=== PATIENT | female | born 1990 | race Caucasian/White ===

== ENCOUNTER 2021-07-13 05:32 | Outpatient (CLI) | payer SELFPAY ==
[~2021-07-13] VITALS: Ht 167.7 cm; Wt 102.3 kg
[2021-07-13] MEDS ORDERED: PNV1TABL9 PO (12:58)
[2021-07-13] MEDS ORDERED: ASCO500C17 PO (12:58)
[2021-07-13] MEDS ORDERED: METO-351 PO (12:58)
[2021-07-13] MEDS ORDERED: MV-M1TAB20 PO (12:58)
[2021-07-13] MEDS ORDERED: LORA10TA76 PO (12:58)
[2021-07-13] MEDS ORDERED: LEVO25TA5 PO (12:58)
== END 2021-07-13 14:25 | disposition home or self-care (01) ==
LOC: PREOP 05:32
PROVIDERS: ATTEND Surgery
DX: Z01.818 Encounter for other preprocedural examination (principal)

== ENCOUNTER 2021-07-20 08:28 | Day surgery (SDC) | payer OTHER ==
[~2021-07-20] VITALS: Ht 167.7 cm; Wt 102.3 kg
[2021-07-20] VITALS (10 sets, daily range): BP systolic 95–119; BP diastolic 60–85
[~2021-07-20 08:28] MED LIST: ASCO500C17 PO; LEVO25TA5 PO; LORA10TA76 PO; METO-351 PO; MV-M1TAB20 PO; PNV1TABL9 PO
--- NOTE | 2021-07-20 08:46 | Progress Note-Pre Operative ---
Pre-Operative Progress Note H&P Reviewed The H&P was reviewed, patient examined and no changes noted. Date Seen by Provider: Jul 20, 2021 Time Seen by Provider: 08:45 Date H&P Reviewed: Jul 20, 2021 Time H&P Reviewed: 08:40 Pre-Operative Diagnosis: Anal Fistula KELLEN NOVAK APRN Jul 20, 2021 08:46
--- OUTSIDE RECORDS SUMMARY | 2021-07-20 08:47 | XMS REPORT | CCD ---
Author Candice Rodríguez Organization Ivelisse Up MD, [facility] Address [facility] [place] [address] Phone Care Team Providers Care Laydown Machine Operator Name Role Phone PP Unavailable CCM Unavailable Summary Purpose Interface Exchange Insurance Providers Payer name Policy type / Coverage type Covered constitution party ID Effective Begin Date Effective End Date ABS [employer] Commercial Insurance [id number] Unknown Unkn own Family history Runs in the family Diagnosis Age At Onset Arthritis Unknown kidney disease Unknown Hypertension Unknown Myocardial infarction Unknown Diabetes mellitus Type 2 Unknown Father Diagnosis Age At Onset Diabetes mellitus Type 2 Unknown Hypertension Unknown Mother Diagnosis Age At Onset Depression Unknown Hypertension Unknown Social History Social History Element Codes Description Effective Dates Marital status Unknown Suresh 09/26/2020 Number of children Unknown 0 09/26/2020 Employment Unknown Currently employed RN at [employer] 09/26/[address]: 301367351 Never smoker 09/26/[address]: 665804478 Never drinks alcohol 2019 Allergies, Adverse Reactions, Alerts Substance Reaction Codes Entered Date Inactivated Date Status clindamycin HCl hives Unknown 09/26/2020 No Inactive Date Act satnam bactrim hives RxNorm: 159928 09/26/2020 No Inactive Date Acti ve Problems Condition Codes Effective Dates Condition Status Rectal cyst ICD-10: K62.89 ICD-9: 569.49 05/31/2021 Active Rectal discharge ICD-10: R19.8 ICD-9: 787.99 05/31/2021 Active Rectal abscess ICD-10: K61.1 ICD-9: 566 05/08/2021 Active COVID-19 ICD-10: U07.1 ICD-9: 079.89 10/28/2020 Active Hypothyroidism, unspecified ICD-10: E03.9 ICD-9: 244.9 09/26/2020 Active Hypothryroidism Unknown 09/26/2020 Active Encounter for general adult medical examination withou t abnormal findings ICD- 10: Z00.00 ICD-9: V70.0 09/26/2020 Active Medications Medication Codes Instructions Start Date Stop Date Status Fill Instructions levofloxacin 500 mg tablet RxNorm: 488511 1 Tablet(s) Oral every da y 05/12/2021 05/11/2021 Inactive levofloxacin 500 mg tablet RxNorm: 902890 1 Tablet(s) Oral every da y 05/12/2021 05/19/2021 Inactive take a probiotic BID x 7 day s Vitamin C 500 mg tablet RxNorm: 197919 1 Tablet(s) Oral every day 0 05/08/2021 No Stop Date Active Vitamin D3 125 mcg (5,000 unit) tablet RxNorm: 383183 1 Tablet(s) Oral every day 05/08/2021 No Stop Date Active doxycycline hyclate 100 mg capsule RxNorm: 3143298 1 Cap malia(s) Oral two times a day 05/05/2021 05/04/2021 Inactive doxycycline hyclate 100 mg capsule RxNorm: 1171102 1 Cap malia(s) Oral two times a day 05/05/2021 05/11/2021 Inactive levothyroxine 25 mcg tablet RxNorm: 775874 1 Tablet(s) Oral nikos ry day 01/09/2021 07/08/2021 Active metoprolol succinate ER 25 mg tablet,extended release 24 hr RxNorm: 786531 1 Tablet(s) Oral every day 01/09/2021 07/08/2021 Active Zofran 4 mg tablet RxNorm: 945037 1 Tablet(s) Oral thr ee times a day as needed nausea 10/31/2020 No Stop Date Active Zofran 4 mg tablet RxNorm: 203005 1 Tablet(s) Oral thr ee times a day as needed nausea 10/31/2020 10/30/2020 Inactive Ventolin HFA 90 mcg/actuation aerosol inhaler RxNorm: 316951 2 Puff(s) Inhalation four times a day as needed dyspnea 10/28/2020 No Stop Date Ac tive prednisone 10 mg tablet RxNorm: 784450 Tablet(s) Oral 6,5,4,3,2,1 1 12/28/2019 05/07/2021 Inactive Nexium 24HR 20 mg tablet,delayed release RxNorm: 7587715 1/2 Tablet(s) Oral every day as needed 09/26/2020 No Stop Date Active metoprolol succinate ER 25 mg tablet,extended release 24 hr RxNorm: 685050 1 Tablet(s) Oral every day 09/26/2020 01/08/2021 Inactive levothyroxine 25 mcg tablet RxNorm: 506835 1 Tablet(s) Oral nikos09/26/2020 01/08/2021 Inactive oral RxNorm: oral 09/26/2020 Active Medication Administered No Medication Administered data Immunizations Vaccine Codes Date Status Covid-19 CVX: 208 04/24/2021 Influenza CVX: 135 08/02/2020 Results Observation Observation Code Item Item Code Result Date S ervice Location Tsh Ord6 TSH (3rd IS) 2.92 uIU/mL 05/09/2021 Unkn own Free T4 [id number] FREE T4 0.85 ng/dL 05/09/2021 Unknown Free T4 [id number] FREE T4 0.86 ng/dL 10/13/2020 Unknown Tsh Ord6 TSH (3rd IS) 3.38 uIU/mL 10/13/2020 Unkn own Procedures No Procedures data Vital Signs Date Vital 05/31/2021 Blood Pressure 1: 116/74 Code: 8480-6 Heart Rate 1: 92 bpm Height: 5'6" Code: 8302-2 SpO2: 98% Temperature: 36.2 (C) / 97.2 (F) Weight: Code: 35888-5 05/08/2021 Blood Pressure 1: 110/80 Code: 8480-6 BMI: 37.4 Code: 59067-0 Heart Rate 1: 72 bpm Height: 5'6" Code: 8302-2 SpO2: 98% Temperature: 3 7.1 (C) / 98.7 (F) Weight: 232 lbs Code: 80816-8 10/28/2020 Height: Code: 8302-2 Weight: Code: 294 63-7 09/26/2020 Blood Pressure 1: 116/76 Code: 8480-6 BMI: 38.3 Code: 91788-1 Heart Rate 1: 70 bpm Height: 5'6" Code: 8302-2 SpO2: 98% Temperature: 3 7.0 (C) / 98.6 (F) Weight: 237 lbs Code: 69295-1 Functional Status No Functional Status data Reason For Visit Reason For Visit Effective Dates Notes skin lesion 05/31/2021 skin lesion 05/08/2021 sinus congestion 10/28/2020 hypothyroid 09/26/2020 Encounters Encounter Performer Location Codes Date () 12466 EST. PATIENT, LEVEL III Diagnosis: Rectal cyst[ICD10: K62.89] Diagnosis: Rectal discharge[ICD10: R19.8] Brittany Up MD, [facility] CPT-4: 49368 05/31/2021 33594 EST. PATIENT, LEVEL III Diagnosis: Rectal abscess[ICD10: K61.1] Brittany Up MD, [facility] CPT- 4: 56425 05/08/2021 32645 EST. PATIENT, LEVEL III Diagnosis: COVID-19[ICD10: U07.1] Brittany Up MD, [facility] CPT -4: 78606 10/28/2020 ([id number]) PREV VISIT NEW AGE 18-39 Diagnosis: Encounter for general adult medical examination without abnormal findings[ICD10: Z00.00] Mirlande Up MD, [facility] CPT-4: 19004 09/26/2020 Plan of Care Planned Activity Notes Codes Status Date Visit Plan: Rectal cyst and drainage - r ecurrent - will refer to colorectal specialist - pt is to notify clinic with any acute changes, questions, or concerns. 05/31/2021 Appointment: Brittany Rockwell WPtel: [address] [place], [place] [phone] (30 min) Complex 05/31/2021 Patient Education: Patient Medication Summary Completed 05/31/2021 Visit Plan: Rectal abscess - improved - pt is to finish abx as ordered - pt is to notify clinic if symptoms do not completely resolve, or with any acute changes, questions, or concerns. 05/08/2021 Appointment: Brittany Rockwell WPtel: [address] [place], [place] [phone] (15 min) Moderate 05/08/2021 Patient Education: Patient Medication Summary Completed 05/08/2021 Appointment: Mirlande Catherine WPtel: [address] [place], [place] [phone] [place] (15 min) Moderate 01/20/2021 Appointment: Mirlande Catherine WPtel: [phone] [phone] [place] (15 min) Moderate 01/16/2021 Visit Plan: COVID-19 - Pt advised to inc rease fluids, vitamin C. Discussed natural and expected course of this diagnosis and need to alert me if symptoms do not follow expected course, or if any worse. RX sent to patient's pharmacy. 10/28/2020 [phone] [facility] [facility] 10/28/2020 Patient Education: Patient Medication Summary Completed 10/28/2020 Patient Education: Patient Medication Summary Completed 10/12/2020 Patient Education: Patient Medication Summary Completed 09/26/2020 Instructions Comment . Rectal cyst and drainage - recurrent - will refer to colorectal specialist - pt is to notify clinic with any acute changes, questions, or concerns. Diabetes has been removed from your hist ory on your chart. Rectal abscess - improved - pt is to finish abx as ordered - pt is to notify clinic if symptoms do not completely resolve, or with any acute changes, questions, or concerns. . COVID-19 - Pt advised to increase flui ds, vitamin C. Discussed natural and expected course of this diagnosis and need to alert me if symptoms do not follow expected course, or if any worse. RX sent to patient's pharmacy. Medical Equipment No Medical Equipment data Health Concerns Section Health Concerns data not found Goals Section Goals data not found Interventions Section Interventions data not found Health Status Evaluations/Outcomes Section Health Status Evaluations/Outcomes data not found Advance Directives No Advance Directive data
--- OUTSIDE RECORDS SUMMARY | 2021-07-20 08:47 | XMS REPORT | CCD ---
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[employer] 09/26/[address]: 860714151 Never smoker 09/26/[address]: 497458929 Never drinks alcohol 2019 Allergies, Adverse Reactions, Alerts Substance Reaction Codes Entered Date Inactivated Date Status clindamycin HCl hives Unknown 09/26/2020 No Inactive Date Act satnam bactrim hives RxNorm: 379364 09/26/2020 No Inactive Date Acti ve Problems [...] Fill Instructions levofloxacin 500 mg tablet RxNorm: 505554 1 Tablet(s) Oral every da y 05/12/2021 05/11/2021 Inactive levofloxacin 500 mg tablet RxNorm: 668595 1 Tablet(s) Oral every da y 05/12/2021 05/19/2021 Inactive take a probiotic BID x 7 day s Vitamin C 500 mg tablet RxNorm: 970424 1 Tablet(s) Oral every day 0 05/08/2021 No Stop Date Active Vitamin D3 125 mcg (5,000 unit) tablet RxNorm: 652365 1 Tablet(s) Oral every day 05/08/2021 No Stop Date Active doxycycline hyclate 100 mg capsule RxNorm: 7779730 1 Cap malia(s) Oral two times a day 05/05/2021 05/04/2021 Inactive doxycycline hyclate 100 mg capsule RxNorm: 1845136 1 Cap malia(s) Oral two times a day 05/05/2021 05/11/2021 Inactive levothyroxine 25 mcg tablet RxNorm: 215375 1 Tablet(s) Oral nikos ry day 01/09/2021 07/08/2021 Active metoprolol succinate ER 25 mg tablet,extended release 24 hr RxNorm: 795271 1 Tablet(s) Oral every day 01/09/2021 07/08/2021 Active Zofran 4 mg tablet RxNorm: 455203 1 Tablet(s) Oral thr ee times a day as needed nausea 10/31/2020 No Stop Date Active Zofran 4 mg tablet RxNorm: 450453 1 Tablet(s) Oral thr ee times a day as needed nausea 10/31/2020 10/30/2020 Inactive Ventolin HFA 90 mcg/actuation aerosol inhaler RxNorm: 450263 2 Puff(s) Inhalation four times a day as needed dyspnea 10/28/2020 No Stop Date Ac tive prednisone 10 mg tablet RxNorm: 904478 Tablet(s) Oral 6,5,4,3,2,1 1 12/28/2019 05/07/2021 Inactive Nexium 24HR 20 mg tablet,delayed release RxNorm: 7104763 1/2 Tablet(s) Oral every day as needed 09/26/2020 No Stop Date Active metoprolol succinate ER 25 mg tablet,extended release 24 hr RxNorm: 534199 1 Tablet(s) Oral every day 09/26/2020 01/08/2021 Inactive levothyroxine 25 mcg tablet RxNorm: 870027 1 Tablet(s) Oral nikos09/26/2020 01/08/2021 Inactive oral RxNorm: oral 09/26/2020 Active Medication Administered No Medication Administered data Immunizations Vaccine Codes Date Status Covid-19 CVX: 208 04/24/2021 Influenza CVX: 135 08/02/2020 Results Observation Observation Code Item Item Code Result Date S ervice Location Tsh Ord6 TSH (3rd IS) 2.92 uIU/mL 05/09/2021 Unkn own Free T4 [id number] FREE T4 0.85 ng/dL 05/09/2021 Unknown Free T4 [id number] FREE T4 0.86 ng/dL 10/13/2020 Unknown Tsh Ord6 TSH (3rd IS) 3.38 uIU/mL 10/13/2020 Unkn own Procedures No Procedures data Vital Signs Date Vital 05/31/2021 Blood Pressure 1: 116/74 Code: 8480-6 Heart Rate 1: 92 bpm Height: 5'6" Code: 8302-2 SpO2: 98% Temperature: 36.2 (C) / 97.2 (F) Weight: Code: 48279-5 05/08/2021 Blood Pressure 1: 110/80 Code: 8480-6 BMI: 37.4 Code: 58454-4 Heart Rate 1: 72 bpm Height: 5'6" Code: 8302-2 SpO2: 98% Temperature: 3 7.1 (C) / 98.7 (F) Weight: 232 lbs Code: 94304-3 10/28/2020 Height: Code: 8302-2 Weight: Code: 294 63-7 09/26/2020 Blood Pressure 1: 116/76 Code: 8480-6 BMI: 38.3 Code: 37840-2 Heart Rate 1: 70 bpm Height: 5'6" Code: 8302-2 SpO2: 98% Temperature: 3 7.0 (C) / 98.6 (F) Weight: 237 lbs Code: 42461-1 Functional Status No Functional Status data Reason For Visit Reason For Visit Effective Dates Notes skin lesion 05/31/2021 skin lesion 05/08/2021 sinus congestion 10/28/2020 hypothyroid 09/26/2020 Encounters Encounter Performer Location Codes Date () 83658 EST. PATIENT, LEVEL III Diagnosis: Rectal cyst[ICD10: K62.89] Diagnosis: Rectal discharge[ICD10: R19.8] Brittany Up MD, [facility] CPT-4: 57482 05/31/2021 09645 EST. PATIENT, LEVEL III Diagnosis: Rectal abscess[ICD10: K61.1] Brittany Up MD, [facility] CPT- 4: 17224 05/08/2021 99566 EST. PATIENT, LEVEL III Diagnosis: COVID-19[ICD10: U07.1] Brittany Up MD, [facility] CPT -4: 95865 10/28/2020 (14053) PREV VISIT NEW AGE 18-39 Diagnosis: Encounter for general adult medical examination without abnormal findings[ICD10: Z00.00] Mirlande Up MD, [facility] CPT-4: 01005 09/26/2020 Plan of Care Planned Activity Notes Codes Status Date Visit Plan: Rectal cyst and drainage - r ecurrent - will refer to colorectal specialist - pt is to notify clinic with any acute changes, questions, or concerns. 05/31/2021 Appointment: Brittany Rockwell WPtel: [address] [place], [place] [phone] (30 min) Complex 05/31/2021 Patient Education: Patient Medication Summary Completed 05/31/2021 Visit Plan: Rectal abscess - improved - pt is to finish abx as ordered - pt is to notify clinic if symptoms do not completely resolve, or with any acute changes, questions, or concerns. 05/08/2021 Appointment: Brittany Rockwell WPtel: [address] [place], [place] [phone] (15 min) Moderate 05/08/2021 Patient Education: Patient Medication Summary Completed 05/08/2021 Appointment: Mirlande Catherine WPtel: [address] [place], [place] [phone] [place] (15 min) Moderate 01/20/2021 Appointment: Mirlande Catherine WPtel: [phone] [phone] [place] (15 min) Moderate 01/16/2021 Visit Plan: COVID-19 - Pt advised to inc rease fluids, vitamin C. Discussed natural and expected course of this diagnosis and need to alert me if symptoms do not follow expected course, or if any worse. RX sent to patient's pharmacy. 10/28/2020 Appointment: [phone] [facility] [facility] 10/28/2020 Patient Education: Patient Medication Summary [...]
[2021-07-20] MEDS ORDERED: HYDR-3817 PO (08:48)
--- NOTE | 2021-07-20 08:48 | Discharge Inst-Surgical ---
D/C Lap Instructions-KIDO Reconcile Patient Problems Problems Reviewed?: Yes New, Converted, or Re-Newed RX: RX on Chart Follow Up Appt in 2 weeks Activity as tolerated No driving for 24 hours No driving while on pain medications Incentive Spirometry use every 2 hours while awake Regular Diet Symptoms to Report: Fever over 101 degree F, Nausea/Vomiting Infection Signs and Symptoms to report: Increased redness, Foul odor of wound, Increased drainage Bathing instructions: May shower Operative Area Clean/Dry; Keep incision clean/dry If any problems/questions: Contact your physician or go to Emergency Room KELLEN NOVAK APRN Jul 20, 2021 08:48
[2021-07-20] MEDS ORDERED: HYDROcodone/APAP 5 MG/325 MG (LORTAB) TAB PO ONE (09:00)
[2021-07-20] MEDS ORDERED: ACETAMINOPHEN 325 MG TABLET PO PRN (09:00)
[2021-07-20] MEDS ORDERED: ONDANSETRON 4 MG/2 ML (SDV) Z0FRAN IVP PRN ×2 (09:00→11:15)
[2021-07-20] MEDS ORDERED: morphine INJ 10 MG/ML 1ML (SYR OR VIAL) IVP PRN (09:00)
[2021-07-20] MEDS: LACTATED RINGERS 1,000 ML IV PRN ×3 (09:00→11:20)
[2021-07-20] MEDS ORDERED: ONDANSETRON 4 MG/2 ML (SDV) Z0FRAN ONE ×2 (09:02→10:45)
[2021-07-20] MEDS ORDERED: FAMOTIDINE 20MG/2ML IV (PEPCID) ONE (09:02)
[2021-07-20] MEDS ORDERED: SCOPOLAMINE 1.5 MG (TRANSDERM-SCOP) PATCH ONE (09:02)
[2021-07-20] MEDS ORDERED: ONDANSETRON 4 MG/2 ML (SDV) Z0FRAN IVP ONE (09:15)
[2021-07-20] MEDS ORDERED: SCOPOLAMINE 1.5 MG (TRANSDERM-SCOP) PATCH TD ONE (09:15)
[2021-07-20] MEDS ORDERED: FAMOTIDINE 20MG/2ML IV (PEPCID) IVP ONE (09:15)
[2021-07-20] MEDS ORDERED: PROPOFOL INJECTION 50 ML IV ONE (09:57)
[2021-07-20] MEDS ORDERED: proPOfol 200 MG/20 ML (DIPRIVAN) VIAL IV ONE (09:57)
[2021-07-20] MEDS ORDERED: fentaNYL INJ 100 MCG/2 ML AMP ONE (09:58)
[2021-07-20] MEDS ORDERED: MIDAZOLAM 2 MG/2 ML (VERSED) VIAL ONE (09:58)
[2021-07-20] MEDS ORDERED: BUPIVACAINE 0.5% 30 ML (SENSORCAINE) VIAL ONE (10:07)
[2021-07-20] MEDS ORDERED: diphenhydrAMINE 50 MG/ML INJ (BENADRYL) ONE (10:24)
[2021-07-20] MEDS ORDERED: LIDOCAINE/EPI 1%-1:200,000 (XYLOCAINE) 30 ML VIAL ONE (10:37)
[2021-07-20] MEDS ORDERED: LIDOCAINE PF 2% 5 ML (XYLOCAINE) VIAL ONE (10:39)
[2021-07-20] MEDS ORDERED: KETOROLAC 30 MG/ML VIAL ONE (10:45)
--- NOTE | 2021-07-20 10:51 | Progress Note-Post Operative ---
Post-Operative Progess Note Surgeon (s)/Grab Jack Man (s) Surgeon RONAL PAK MD Grab Jack Man: ryan ndiaye OBSTETRICS GYNECOLOGY MD Pre-Operative Diagnosis Anal Fistula Post-Operative Diagnosis superficial anal fistula 12 o'clock Procedure & Operative Findings Date of Procedure 07/20/21 Procedure Performed/Findings pudendal nerve block, anal exam under anesthesia, fistulotomy. Anesthesia Type general LMA Estimated Blood Loss Estimated blood loss (mL): minimal Specimens/Packing Specimens Removed none RONAL PAK MD Jul 20, 2021 10:51
[2021-07-20] MEDS ORDERED: PROMETHAZINE INJ 25 MG/ML (PHENERGAN) AMP IVP ONE (11:15)
--- NOTE | 2021-07-20 11:15 | Anesthesia-General Post-Op ---
General Patient Condition Mental Status/LOC: Same as Preop Cardiovascular: Satisfactory Nausea/Vomiting: Present (nauseous, antiemetics given in PACU) Respiratory: Satisfactory Pain: Controlled Complications: Absent Post Op Complications Complications None Follow Up Care/Instructions Patient Instructions None needed. Anesthesia/Patient Condition Patient Condition Patient is doing well, no complaints, stable vital signs, no apparent adverse anesthesia problems. No complications reported per nursing. TEDDY HASSAN CRNA Jul 20, 2021 11:15
--- NOTE | 2021-07-20 15:20 | OPERATIVE REPORT ---
DATE OF SERVICE: 07/20/2021 ATTENDING PRIMARY CARE PHYSICIAN: Ivelisse Up MD PREOPERATIVE DIAGNOSIS: Symptomatic perianal fistula. POSTOPERATIVE DIAGNOSES: Superficial anal fistula at the 12 o'clock position with the patient in lithotomy position. PROCEDURE: Pudendal nerve block, anal exam under anesthesia, fistulotomy. SURGEON: Ronal Pak MD. MACHINE ZIPPER TRIMMER: Sherwin Hernandez APRN. ANESTHESIA: General laryngeal mask airway. ESTIMATED BLOOD LOSS: Minimal. FINDINGS: Superficial anal fistula superficial to the anal sphincters at the 12 o'clock position with the patient in the lithotomy position. DISPOSITION: The patient tolerated the procedure well. INDICATIONS: The patient is a 31-year-old female with perirectal pain and drainage for the past 2 months. She also does report a history of intermittent constipation. She noticed pain as well as purulent drainage and was seen by her primary care physician and started on antibiotics, which did help some; however, she has had reoccurrence of symptoms and was started on another round of antibiotics. She then again developed recurrence of pain as well as drainage. Upon examination, there was a small sinus at the 12 o'clock position with the patient in lithotomy position as well as mild cloudy serous drainage consistent with a fistula. DESCRIPTION OF PROCEDURE: The patient was brought to the operating room, laid supine on the table. After adequate IV pain and sedative medications and general laryngeal mask airway intubation, the patient was placed in lithotomy position and perineum prepped and draped in standard surgical fashion. We then proceeded with a pudendal nerve block using 1% lidocaine with epinephrine. approximately 1 cm inferior to the ischial tuberosity at the 3 and 9 o'clock position. Once the anal sphincters were relaxed, a speculum was placed, and examination was performed. There was mild chronic stage II external and internal hemorrhoids. There was a fistula opening at the 12 o'clock position. This was probed using lacrimal probes and this did open into the anal canal and was superficial to the external as well as internal anal sphincters. We then proceeded with a fistulotomy using electrocautery with visualization of good hemostasis. Gelfoam covered in Surgicel and Surgilube was then placed into the anal canal, followed by 4 x 4 gauze followed by ABD pad followed by mesh shorts. The patient tolerated the procedure well. She will be instructed to remove the rest of the packing with her first bowel movement and to proceed with Sitz baths on a q.i.d. basis as well as after every bowel movement. We will also recommend promoting extremely soft stools with a fiber supplementation as well as laxatives or stool softeners or a combination of both. Long-term, she will need to proceed with a high fiber diet to promote soft stools on a daily basis. Job ID: [id number] DocumentID: [id number] Dictated Date: 07/20/2021 10:59:24 Customer Services Coordinator Date: 07/20/2021 15:19:55 Dictated By: RONAL PAK MD MTDD
== END 2021-07-20 13:05 ==
LOC: SDC 08:28
PROVIDERS: ATTEND Surgery
DX: K60.3 Anal fistula (principal); K64.1 Second degree hemorrhoids; K21.9 Gastro-esophageal reflux disease without esophagitis; E03.9 Hypothyroidism, unspecified; Z79.890 Hormone replacement therapy; Z79.899 Other long term (current) drug therapy
CPT/HCPCS: 84703; 87081

== ENCOUNTER 2021-08-23 09:04 | Outpatient (CLI) | payer OTHER ==
[~2021-08-23] VITALS: Ht 167 cm; Wt 102.3 kg
[~2021-08-23 09:04] MED LIST changes: +HYDR-3817 PO
[2021-08-23] MEDS ORDERED: METR500T PO (14:07)
[2021-08-23] MEDS ORDERED: LEVO750T39 PO (14:07)
[2021-08-24] MEDS ORDERED: HYDR-3817 PO (09:22)
== END 2021-08-23 16:26 | disposition home or self-care (01) ==
LOC: PREOP 09:04
PROVIDERS: ATTEND Surgery
DX: Z01.818 Encounter for other preprocedural examination (principal)

== ENCOUNTER 2021-08-24 08:28 | Day surgery (SDC) | payer OTHER ==
[~2021-08-24] VITALS: Ht 167 cm; Wt 102.3 kg
[2021-08-24] VITALS (12 sets, daily range): BP systolic 99–123; BP diastolic 52–85
--- NOTE | 2021-08-24 06:17 | HISTORY AND PHYSICAL ---
DATE OF SERVICE: DATE OF ADMISSION: 08/24/2021. ATTENDING PRIMARY CARE PHYSICIAN: Ivelisse Up MD HISTORY: The patient is a 31-year-old female who has had perirectal pain and drainage for the past three to four months now. She reports that this first started with a history of intermittent constipation, then she noticed purulent drainage and was seen by her primary care physician and started on antibiotics, which did help some; however, she did have reoccurrence of symptoms several times. We had examined her in the office on 06/20/2021 and it appeared that she did have a small sinus tract opening at the 12 o'clock position with the patient in lithotomy with some mild cloudy serous drainage. She then underwent an anal exam under anesthesia and she was found to have what was thought to be a superficial anal fistula at the 12 o'clock position with the patient in lithotomy and underwent a simple fistulotomy. She reports that she has had reoccurrence of pain and swelling this time around the 12 o'clock position and was started on antibiotics again, which did help; however, this continued to worsen and then eventually she did develop significant purulent drainage. Upon examination today, there is a hard palpable lesion at approximately the 2 o'clock position with the patient in lithotomy and when pressed hard, this does elicit some purulent and bloody drainage; however, the opening cannot be identified. This likely indicates a perirectal abscess as well as again possibility of a deeper fistula. PAST MEDICAL HISTORY: Hypothyroid, benign cardiac arrhythmia, gastroesophageal reflux disease. PAST SURGICAL HISTORY: Tonsillectomy in 1991; left knee arthroscopy x2, 2006 and 2017; right breast lumpectomy, which was benign, 2013. ALLERGIES: CLINDAMYCIN, SULFA. MEDICATIONS: Levothyroxine 25 mcg daily, Levaquin 750 mg daily, Flagyl 500 mg b.i.d. SOCIAL HISTORY: Negative smoke, negative alcohol. FAMILY HISTORY: Noncontributory. Father, diabetes, hypertension. Mother, hypertension. VITAL SIGNS: Stable, afebrile. REVIEW OF SYSTEMS: Well-nourished female, in no acute distress. She is not experiencing any shortness of breath or difficulty breathing. No chest pain, palpitations, diaphoresis. No nausea, vomiting with a recurrent perianal pain at approximately the 2 o'clock position with the patient in lithotomy position with the hard knot as well as erythema; however, underwent spontaneous drainage out to the anus. No fever, chills, no recent inadvertent weight loss. All other review of systems negative. PHYSICAL EXAMINATION: CHEST: Clear. Good breath sounds bilaterally. HEART: Regular, no murmurs. EXTREMITIES: No lower extremity edema, negative Homans sign. HEENT: No scleral icterus. NECK: No cervical lymphadenopathy. ABDOMEN: Soft, nontender, nondistended. RECTAL: Hardness at approximately the 2 o'clock position with the patient in lithotomy, tender to palpation with some drainage upon deep palpation. ASSESSMENT AND PLAN: A 31-year-old female with a perirectal abscess as well as possibility of a deep perianal fistula. We will proceed with anal exam under anesthesia and drainage of the perirectal abscess as well as a possible Seton suture placement if deep to the anal sphincter muscles. Job ID: [id number] DocumentID: [id number] Dictated Date: 08/22/2021 16:16:50 [employer] Infrastructure Consultant Date: 08/22/2021 16:39:37 Dictated By: RONAL PAK MD
[~2021-08-24 08:28] MED LIST changes: +LEVO750T39 PO; +METR500T PO
[2021-08-24] MEDS ORDERED: PIPERACILLIN/TAZOBACTAM (BULK) 4.5 GM in NS (IVPB) 100 ML IV ONE ×2 (09:00→12:45)
[2021-08-24] MEDS ORDERED: SCOPOLAMINE 1.5 MG (TRANSDERM-SCOP) PATCH ONE (09:15)
[2021-08-24] MEDS ORDERED: ONDANSETRON 4 MG/2 ML (SDV) Z0FRAN ONE ×3 (09:15→11:45)
[2021-08-24] MEDS ORDERED: FAMOTIDINE 20MG/2ML IV (PEPCID) ONE (09:17)
[2021-08-24] MEDS ORDERED: LIDOCAINE/EPI 1%-1:100,000 (XYLOCAINE) 10 ML ONE ×2 (09:17→10:03)
--- NOTE | 2021-08-24 09:19 | Progress Note-Pre Operative ---
Pre-Operative Progress Note H&P Reviewed The H&P was reviewed, patient examined and no changes noted. Date Seen by Provider: Aug 24, 2021 Time Seen by Provider: 09:15 Date H&P Reviewed: Aug 24, 2021 Time H&P Reviewed: 09:10 Pre-Operative Diagnosis: Perirectal abscess and fistula KELLEN NOVAK APRN Aug 24, 2021 09:19
[2021-08-24] MEDS ORDERED: METHYLENE BLUE 0.5% (PROVAYBLUE) 50 mg/10 ml vial IV ONE (09:20)
[2021-08-24] MEDS ORDERED: MIDAZOLAM 2 MG/2 ML (VERSED) VIAL ONE (09:21)
[2021-08-24] MEDS ORDERED: proPOfol 200 MG/20 ML (DIPRIVAN) VIAL IV ONE (09:21)
[2021-08-24] MEDS ORDERED: LIDOCAINE PF 2% 5 ML (XYLOCAINE) VIAL ONE (09:21)
[2021-08-24] MEDS ORDERED: HYDR-3817 PO (09:22)
[2021-08-24] MEDS: LACTATED RINGERS 1,000 ML IV PRN ×3 (09:23→10:30)
--- NOTE | 2021-08-24 09:23 | Discharge Inst-Surgical ---
D/C Lap Instructions-KIDO Reconcile Patient Problems Problems Reviewed?: Yes New, Converted, or Re-Newed RX: RX on Chart Follow Up Appt in 2 weeks Activity as tolerated No driving for 24 hours No driving while on pain medications Incentive Spirometry use every 2 hours while awake Regular Diet Symptoms to Report: Fever over 101 degree F, Nausea/Vomiting Infection Signs and Symptoms to report: Increased redness, Foul odor of wound, Increased drainage Bathing instructions: May shower Operative Area Clean/Dry; Keep incision clean/dry If any problems/questions: Contact your physician or go to Emergency Room KELLEN NOVAK APRN Aug 24, 2021 09:23
[2021-08-24] MEDS ORDERED: HYDROcodone/APAP 5 MG/325 MG (LORTAB) TAB PO ONE (09:30)
[2021-08-24] MEDS ORDERED: FAMOTIDINE 20MG/2ML IV (PEPCID) IVP ONE (09:30)
[2021-08-24] MEDS ORDERED: morphine INJ 10 MG/ML 1ML (SYR OR VIAL) IVP PRN (09:30)
[2021-08-24] MEDS ORDERED: SCOPOLAMINE 1.5 MG (TRANSDERM-SCOP) PATCH TD ONE (09:30)
[2021-08-24] MEDS ORDERED: ACETAMINOPHEN 325 MG TABLET PO PRN (09:30)
[2021-08-24] MEDS ORDERED: ONDANSETRON 4 MG/2 ML (SDV) Z0FRAN IVP PRN (09:30)
[2021-08-24] MEDS ORDERED: ONDANSETRON 4 MG/2 ML (SDV) Z0FRAN IVP ONE ×2 (09:30→13:30)
[2021-08-24] MEDS ORDERED: PROPOFOL INJECTION 50 ML IV ONE ×3 (09:46→10:40)
[2021-08-24] MEDS ORDERED: diphenhydrAMINE 50 MG/ML INJ (BENADRYL) ONE (09:46)
[2021-08-24] MEDS ORDERED: KETOROLAC 30 MG/ML VIAL ONE (10:33)
--- NOTE | 2021-08-24 10:47 | Progress Note-Post Operative ---
Post-Operative Progess Note Surgeon (s)/Associate (s) Surgeon RONAL PAK MD Associate: ryan ndiaye APRN Pre-Operative Diagnosis Perirectal abscess and fistula Post-Operative Diagnosis same. 2 0'clock position in prone position. Procedure & Operative Findings Date of Procedure 08/24/21 Procedure Performed/Findings anal exam under anesthesia, incision drainage perirectal abscess, placement seton suture, pudendal nerve block. Anesthesia Type get with pudendal nerve block. Estimated Blood Loss Estimated blood loss (mL): minimal Specimens/Packing Specimens Removed abscess for I&D. RONAL PAK MD Aug 24, 2021 10:47
[2021-08-24] MEDS ORDERED: fentaNYL INJ 100 MCG/2 ML AMP ONE (10:58)
[2021-08-24] MEDS ORDERED: HYDROcodone/APAP 5 MG/325 MG (LORTAB) TAB ONE (12:30)
--- NOTE | 2021-08-24 13:27 | OPERATIVE REPORT ---
DATE OF SERVICE: 08/24/2021 ATTENDING PRIMARY CARE PHYSICIAN: Dr. Ivelisse Up. PREOPERATIVE DIAGNOSIS: Persistent perianal drainage, pain and abscess. 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 PROCEDURES PERFORMED: Anal exam under anesthesia, pudendal nerve block. Incision and drainage of perirectal abscess, and placement of Seton suture. SURGEON: Ronal Pak MD. CONSUMER SAFETY INSPECTOR: Sherwin Hernandez APRN. ANESTHESIA: General endotracheal with pudendal nerve block and local anesthesia. ESTIMATED BLOOD LOSS: Minimal. 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 DISPOSITION: The patient tolerated the procedure well. INDICATIONS FOR PROCEDURE: The patient is a 31-year-old female, who has had a perirectal pain and drainage for the past four months now. She first started with history of intermittent constipation and then noticed purulent drainage and was seen by her primary care physician and was started on antibiotics, which did help; however, she did have reoccurrence of symptoms several times. We had examined her in the office on 06/20/2021 and it appeared that she did have a small sinus tract opening at the 12 o'clock position with the patient in lithotomy and some mild cloudy serous drainage. She then underwent anal exam under anesthesia, was found to have what was thought to be a superficial anal fistula at the 12 o'clock position and underwent a simple fistulotomy. She reports reoccurrence of pain and swelling this time around at the 2 o'clock position and was started on antibiotics again, which did help some; however, she continued to worsen and eventually developed significant purulent drainage. She was then examined and there was a hard palpable lesion at approximately 2 o'clock position and when pressed hard this would elicit the purulent and bloody drainage; however, the opening could not be identified. DESCRIPTION OF PROCEDURE: The patient was brought to the operating room and laid supine on the table. After adequate IV pain and sedative medications and general endotracheal intubation, the patient was then placed in lithotomy position and the perineum prepped and draped in a standard surgical fashion. We then proceeded with a pudendal nerve block using 1% lidocaine with epinephrine, approximately 1 cm below the ischial tuberosity bilaterally. A speculum was then placed and at this time, no opening was identified. The palpable abscess was then injected with isosulfan blue and then pressure applied and the methylene blue was identified opening along the previous simple fashion fistulotomy site at the 12 o'clock position; however, appeared to be deep to the anal sphincters. We then proceeded with an incision and drainage of the perirectal abscess using a 15 blade and the skin was anesthetized using 1% lidocaine. The chronic abscess cavity was then palpated and did communicate with the 12 o'clock fistulous opening. We then made a counter incision closer to the anoderm and used lacrimal probes to identify the sinus opening into the perirectal abscess cavity. Once this was identified, a vessel loop was placed around the fistula and tied with gentle pressure with 0 silk suture. The abscess cavity was then copiously irrigated and a quarter-inch [place] drain placed into the perirectal abscess cavity. The wound was then cleaned and covered with gauze after a hemostatic plug made of Surgifoam. Gelfoam and Surgicel was placed into the anal canal. Mesh shorts were then placed to hold this in place. The patient tolerated the procedure well. We will start IV normal pain medication as well as clear liquids. She will be instructed to keep the area clean and dry and continue with Sitz baths q.i.d. as well as after every bowel movement. We will have her follow up in the office every week for a slow tightening of the Seton suture. Job ID: [id number] DocumentID: [id number] Dictated Date: 08/24/2021 10:57:27 Mobility Developer Date: 08/24/2021 13:26:43 Dictated By: RONAL PAK MD [facility]
[2021-08-24] MEDS ORDERED: PROMETHAZINE INJ 25 MG/ML (PHENERGAN) AMP ONE (13:29)
[2021-08-24] MEDS ORDERED: PROMETHAZINE INJ 25 MG/ML (PHENERGAN) AMP IVP ONE (13:30)
--- NOTE | 2021-08-24 13:51 | Anesthesia-General Post-Op ---
General Patient Condition Mental Status/LOC: Same as Preop Cardiovascular: Satisfactory Nausea/Vomiting: Absent Respiratory: Satisfactory Pain: Controlled Complications: Absent Post Op Complications Complications None Follow Up Care/Instructions Patient Instructions None needed. Anesthesia/Patient Condition Patient Condition Patient is doing well, no complaints, stable vital signs, no apparent adverse anesthesia problems. No complications reported per nursing. TEDDY HASSAN CRNA Aug 24, 2021 13:51
== END 2021-08-24 14:30 ==
LOC: SDC 08:28
PROVIDERS: ATTEND Surgery
DX: K61.1 Rectal abscess (principal); E03.9 Hypothyroidism, unspecified; Z79.890 Hormone replacement therapy; Z79.899 Other long term (current) drug therapy; Z98.890 Other specified postprocedural states
CPT/HCPCS: 84703; 87070; 87075; 87077; 87081; 87101; 87186; 87205

== ENCOUNTER → 2023-02-05 | Outpatient (CLI) | payer OTHER ==
[~2023-02-05] MED LIST changes: +LEVO750T PO; -LEVO750T39 PO
== END ==
LOC: LAB 06:29
DX: Z32.01 Encounter for pregnancy test, result positive (principal)
CPT/HCPCS: 36415; 84702

== ENCOUNTER → 2023-02-07 | Outpatient (CLI) | payer OTHER | LOC: LAB 06:35 | DX: Z32.01 Encounter for pregnancy test, result positive (principal) | CPT/HCPCS: 36415; 84702 ==

== ENCOUNTER → 2023-05-30 | Outpatient (CLI) | payer OTHER ==
--- NOTE | 2023-05-30 17:32 | Diagnostic Imaging Report ---
INDICATION: Routine care with sonographic evaluation. TECHNIQUE: Multiple real-time grayscale images were obtained over the gravid uterus. COMPARISON: None. FINDINGS: Chambers intrauterine gestation is present in transverse presentation. There is normal amniotic fluid index of 17 cm with heart rate of 150 BPM. No maternal adnexal region abnormality is identified. Cervical length is 4.2 cm. There is no evidence of placenta previa. No anomalies identified. biometry indicates gestational age of 20 weeks and 5 days with sonographic EDC of 10/12/2023. IMPRESSION: Unremarkable obstetrical ultrasonography with estimated gestational age of 20 weeks and 5 days. Sonographic EDC is 10/12/2023. Biometrical measurements are as follows: Biparietal 4.84 cm, age 20 weeks 5 days. Head circumference 18.78 cm, age 21 weeks 1 days. Abdominal circumference 15.81 cm, age 21 weeks 0 days. Femur length 3.17 cm, age 20 weeks 5 days. Sonographic estimate age: 20 weeks 5 days. Sonographic estimated date of delivery: 10/12/2023. Estimated Weight: 359 gm (+/- 52 gm). LMP percentile: 82%. heart rate: 150 beats per minute. number: 1 of 1. Dictated by: Dictated on workstation # [id number]
== END ==
LOC: RAD 14:59
PROVIDERS: ATTEND Nurse Practitioner Women's Health
DX: Z34.92 Encounter for supervision of normal pregnancy, unspecified, second trimester (principal); Z3A.20 20 weeks gestation of pregnancy
CPT/HCPCS: 76805

== ENCOUNTER → 2023-09-23 | Outpatient (CLI) | payer OTHER | LOC: LABNPT 10:30 | PROVIDERS: ATTEND Obstetrics & Gynecology | DX: O13.9 Gestational [pregnancy-induced] hypertension without significant proteinuria, unspecified trimester (principal); Z3A.00 Weeks of gestation of pregnancy not specified | CPT/HCPCS: 82570; 84156 ==

== ENCOUNTER → 2023-09-30 | Outpatient (CLI) | payer OTHER | LOC: LABNPT 10:03 | PROVIDERS: ATTEND Obstetrics & Gynecology | DX: O13.9 Gestational [pregnancy-induced] hypertension without significant proteinuria, unspecified trimester (principal); Z3A.00 Weeks of gestation of pregnancy not specified | CPT/HCPCS: 82570; 84156 ==

== ENCOUNTER 2023-10-03 07:17 | Inpatient (IN) | payer OTHER ==
[~2023-10-03] VITALS: Ht 167.7 cm; Wt 106.9 kg
[2023-10-03] VITALS (61 sets, daily range): BP systolic 104–152; BP diastolic 55–88
[2023-10-03 08:03] LABS: CLARITY,URINE CLEAR; COLOR,URINE YELLOW; GLUCOSE, URINE (UA) NEGATIVE (NEGATIVE); PH,URINE 6.5 (5-9); PROTEIN,URINE 1+ (NEGATIVE)
[2023-10-03 08:04] LABS: BACTERIA,URINE TRACE /HPF; BILIRUBIN,URINE NEGATIVE (NEGATIVE); KETONES,URINE NEGATIVE (NEGATIVE); LEUKOCYTE ESTERASE ,URINE NEGATIVE (NEGATIVE); NITRITE,URINE NEGATIVE (NEGATIVE); RBC,URINE 25-50 /HPF; WBC,URINE 0-2 /HPF
[2023-10-03 08:37] LABS: BASOPHILS % (AUTO) 0 % (0-10); EOSINOPHILS # (AUTO) 0.1 10^3/uL (0.0-0.3); EOSINOPHILS % (AUTO) 1 % (0-10); HEMATOCRIT 39 % (35-52); HEMOGLOBIN 13.3 g/dL (11.5-16.0); LYMPHOCYTES # (AUTO) 2.1 10^3/uL (1.0-4.0); LYMPHOCYTES % (AUTO) 15 % (12-44); MEAN CORPUSCULAR HEMOGLOBIN 31 pg (25-34); MEAN CORPUSCULAR HGB CONC 34 g/dL (32-36); MEAN CORPUSCULAR VOLUME 91 fL (80-99); MEAN PLATELET VOLUME 10.5 fL (9.0-12.2); MONOCYTES # (AUTO) 0.8 10^3/uL (0.0-1.0); MONOCYTES % (AUTO) 6 % (0-12); NEUTROPHILS # (AUTO) 10.7 10^3/uL (1.8-7.8); NEUTROPHILS % (AUTO) 78 % (42-75); PLATELET COUNT 253 10^3/uL (130-400); WHITE BLOOD COUNT 13.7 10^3/uL (4.3-11.0)
[2023-10-03] MEDS ORDERED: LACTATED RINGERS 1,000 ML 500 ML IV PRN (08:45)
[2023-10-03] MEDS ORDERED: MINERAL OIL 30 ML UDC TOP PRN (08:45)
[2023-10-03] MEDS: OXYTOCIN DRIP PRE-MIX 500 ML IV SCH (08:54)
[2023-10-03] MEDS: D5 LR 1,000 ML IV SOLN 1,000 ML IV SCH ×2 (08:54→16:30)
[2023-10-03] MEDS ORDERED: fentaNYL 2 mcg/ml BUPIVA 0.125 100 ML ONE (11:12)
[2023-10-03] MEDS ORDERED: BUPIVACAINE 0.25% 10 ML VIAL ONE (11:44)
[2023-10-03] MEDS ORDERED: fentaNYL INJECTION 100 MCG/2 ML VIAL ONE (11:44)
[2023-10-03] MEDS: fentaNYL 2 mcg/ml BUPIVA 0.125 100 ML EPI SCH ×2 (12:11→19:18)
[2023-10-03] MEDS ORDERED: ONDANSETRON INJECTION 4 MG/2 ML (SDV) IV PRN (12:30)
[2023-10-03] MEDS ORDERED: diphenhydrAMINE INJ 50 MG/ML VIAL IV PRN (12:30)
[2023-10-03] MEDS ORDERED: CATHETER FLUSH 10 ML SYR IV PRN (12:30)
[2023-10-03] MEDS ORDERED: LACTATED RINGERS 1,000 ML 1,000 ML IV ONE (12:30)
[2023-10-03] MEDS ORDERED: NALOXONE 0.4 MG/ML 1 ML VIAL IV PRN (12:30)
[2023-10-03] MEDS ORDERED: CATHETER FLUSH 10 ML SYR IV SCH (14:00)
--- NOTE | 2023-10-03 14:21 | History & Physical-OB ---
OB - Chief Complaint & HPI Date/Time Date of Admission: Date of Admission: Oct 03, 2023 at 08:00 Date seen by a Provider: Oct 03, 2023 Time Seen by a Provider: 09:45 Chief Complaint/History OB-Reason for Admission/Chief: Rupture of Membranes Hx : 1 Hx Para: 0 Expected Date of Delivery: Oct 18, 2023 Gestational Age in Weeks: 37 Gestational Age in Days: 6 Admission Nurse Assessment Rev: Yes History of Labs O pos Antibody neg RI RPR NR HBsAg NR HIV NR GC neg GBS neg Allergies and Home Medications Allergies Coded Allergies: Sulfa (Sulfonamide Antibiotics) (Verified Allergy, Unknown, Hives, 08/23/21) clindamycin (Verified Allergy, Unknown, Hives, 08/23/21) Patient Home Medication List Home Medication List Reviewed: Yes Ascorbic Acid (Vitamin C) 500 Mg Capsule, 500 MG PO DAILY, (Reported) Entered as Reported by: LOGAN DEL RIO on 07/13/21 1258 Metoprolol Succinate (Toprol Xl) 25 Mg Tab.er.24h, 25 MG PO HS, (Reported) Entered as Reported by: LOGAN DEL RIO on 07/13/21 1258 Metronidazole (Flagyl) 500 Mg Tablet, 500 MG PO, (Reported) Entered as Reported by: BRENDA GALLEGOS on 08/23/21 1407 Mv-Mn/Iron/FA/Herbal Cmplx#190 (Vitamin D3 Complete Caplet) 1 Each Tablet, 1 EACH PO DAILY, (Reported) Entered as Reported by: LOGAN DEL RIO on 07/13/21 1258 Pnv Cmb#21/Iron/Folic Acid ( Complete Caplet) 1 Each Tablet, 1 EACH PO HS, (Reported) Entered as Reported by: LOGAN DEL RIO on 07/13/21 1258 Discontinued Medications Hydrocodone/Acetaminophen (Hydrocodone-Acetamin 7.5-325) 1 Each Tablet, 1 EACH PO Q4H PRN for PAIN-BREAKTHROUGH Discontinued Reason: No Longer Taking Prescribed by: KELLEN NOVAK on 07/20/21 0848 Last Action: Discontinued Hydrocodone/Acetaminophen (Hydrocodone-Acetamin 7.5-325) 1 Each Tablet, 1-2 EACH PO Q4H PRN for PAIN-BREAKTHROUGH Discontinued Reason: No Longer Taking Prescribed by: KELLEN NOVAK on 08/24/21 0922 Last Action: Discontinued Levofloxacin (Levofloxacin) 750 Mg Tablet, 750 MG PO, (Reported) Discontinued Reason: No Longer Taking Entered as Reported by: BRENDA GALLEGOS on 08/23/21 1407 Last Action: Discontinued Levothyroxine Sodium (Levothyroxine Sodium) 25 Mcg Tablet, 25 MCG PO DAILY, (Reported) Discontinued Reason: No Longer Taking Entered as Reported by: LOGAN DEL RIO on 07/13/21 1258 Last Action: Discontinued Loratadine (Claritin) 10 Mg Tablet, 10 MG PO DAILY, (Reported) Discontinued Reason: No Longer Taking Entered as Reported by: LOGAN DEL RIO on 07/13/21 125 Last Action: Discontinued OB - History Hx of Present Care: Yes Ultrasounds: Normal mid trimester US Obstetrical Complications: None Medical Complications: None Patient Past Medical History nc Social History/Family History 2nd Hand Smoke Exposure: No Immunizations Influenza Vaccine Up-to-Date: Yes; Up-to-Date First/Initial COVID19 Vaccine: APRIL 2021 Second COVID19 Vaccination: MAY 2021 OB - Admission Exam Physical Exam Vitals: Vital Signs 10/03/23 10/03/23 11:13 12:08 Temp 37.2 Pulse 91 Resp 18 B/P (MAP) 123/71 (88) Pulse Ox 97 O2 Delivery Room Air HEENT: NCAT Heart: Rhythm Normal Lungs: Clear Abdomen: Gravid Extremities: Normal Reflexes: Normal Cervical Dilatation: 2cm Effacement: 75% Station: -2 Membranes: Ruptured Amniotic Fluid: Clear Heart Rate: 130's Decelerations: No Decelerations Short Term Variability: Present Correction Variability: Average (6-25) Contractions on Admission: < 5 Minutes Apart Intensity: Mild Labs Laboratory Tests Test 10/03/23 07:30 10/03/23 08:20 Range/Units Urine Color YELLOW Urine Clarity CLEAR Urine pH 6.5 5-9 Urine Specific [place] 1.020 1.016-1.022 Urine Protein 1+ H NEGATIVE Urine Glucose (UA) NEGATIVE NEGATIVE Urine Ketones NEGATIVE NEGATIVE Urine Nitrite NEGATIVE NEGATIVE Urine Bilirubin NEGATIVE NEGATIVE Urine Urobilinogen 0.2 < = 1.0 MG/DL Urine Leukocyte Esterase NEGATIVE NEGATIVE Urine RBC (Auto) 3+ H NEGATIVE Urine RBC 25-50 H /HPF Urine WBC 0-2 /HPF Urine Squamous Epithelial Cells 5-10 /HPF Urine Crystals NONE /LPF Urine Bacteria TRACE /HPF Urine Casts NONE /LPF Urine Mucus SMALL H /LPF Urine Culture Indicated NO White Blood Count 13.7 H 4.3-11.0 10^3/uL Red Blood Count 4.28 3.80-5.11 10^6/uL Hemoglobin 13.3 11.5-16.0 g/dL Hematocrit 39 35-52 % Mean Corpuscular Volume 91 80-99 fL Mean Corpuscular Hemoglobin 31 25-34 pg Mean Corpuscular Hemoglobin Concent 34 32-36 g/dL Red Cell Distribution Width 12.8 10.0-14.5 % Platelet Count 253 130-400 10^3/uL Mean Platelet Volume 10.5 9.0-12.2 fL Immature Granulocyte % (Auto) 1 % Neutrophils (%) (Auto) 78 H 42-75 % Lymphocytes (%) (Auto) 15 12-44 % Monocytes (%) (Auto) 6 0-12 % Eosinophils (%) (Auto) 1 0-10 % Basophils (%) (Auto) 0 0-10 % Neutrophils # (Auto) 10.7 H 1.8-7.8 10^3/uL Lymphocytes # (Auto) 2.1 1.0-4.0 10^3/uL Monocytes # (Auto) 0.8 0.0-1.0 10^3/uL Eosinophils # (Auto) 0.1 0.0-0.3 10^3/uL Basophils # (Auto) 0.0 0.0-0.1 10^3/uL Immature Granulocyte # (Auto) 0.1 0.0-0.1 10^3/uL Syphilis Total Antibody Negative Negative OB - Assessment/Plan/Diagnosis Assessment Assessment: active labor, rupture of membranes Admission Dx 33 yo @ 37.6 weeks Active labor SROM GBS neg Admission Status: Inpatient Order (span 2 midnights) Reason for Inpatient Admission: Active labor at 37 weeks Plan Plan: Expectant Management MILE HERNANDEZ DO Oct 03, 2023 14:21
[2023-10-03] MEDS ORDERED: LIDOCAINE 2% w/EPI 1:200,000 20 ML VIAL ONE (22:59)
[2023-10-04] VITALS (15 sets, daily range): BP systolic 105–147; BP diastolic 55–82
[2023-10-04] MEDS ORDERED: LIDOCAINE 2% w/EPI 1:200,000 20 ML VIAL INJ ONE (00:45)
[2023-10-04] MEDS: OXYTOCIN DRIP PRE-MIX 500 ML IV SCH (01:03)
--- NOTE | 2023-10-04 01:08 | OB Labor & Delivery Record ---
L&D History Date of Service Date of Service: Oct 04, 2023 History Expected Date of Delivery: Oct 18, 2023 Gestational Age in Weeks: 37 Hx : 1 Hx Para: 0 Complications Events: Routine care Operative Indications (Cesarea: N/A-Vaginal Delivery Intrapartal Events: None L&D Stage1 Stage One Onset of Labor - Date: Oct 04, 2023 Monitors and Tracing Monitor Mode: Internal Heart Rate: 135 Monitor Accelerations: Uniform Monitor Decelerations: Variable Station: -3 Naturopathic Doctor Variability: Average (6-10) Short Term Variability: Present Presentation: Vertex Vital Signs VS - Last 72 Hours, by Label 10/03/23 10/03/23 10/03/23 10/03/23 07:43 08:15 08:20 08:27 Temp 36.6 36.6 Pulse 87 87 91 85 Resp 18 18 B/P (MAP) 120/81 (94) 122/81 (95) 123/78 (93) Pulse Ox 97 97 O2 Delivery Room Air Room Air Room Air Room Air 10/03/23 10/03/23 10/03/23 10/03/23 08:43 08:57 09:14 09:27 Pulse 91 87 87 87 B/P (MAP) 124/82 (96) 124/76 (92) 120/63 (82) 116/71 (86) O2 Delivery Room Air Room Air Room Air Room Air 10/03/23 10/03/23 10/03/23 10/03/23 09:44 09:57 10:12 10:28 Pulse 81 85 88 B/P (MAP) 106/66 (79) 113/76 (88) 118/81 (93) 115/79 (91) O2 Delivery Room Air Room Air Room Air Room Air 10/03/23 10/03/23 10/03/23 10/03/23 10:43 10:58 11:13 11:27 Temp 37.2 Pulse 86 86 88 Resp 18 B/P (MAP) 123/80 (94) 152/77 (102) 133/77 (95) 139/84 (102) O2 Delivery Room Air Room Air Room Air Room Air 10/03/23 10/03/23 10/03/23 10/03/23 11:48 11:54 12:00 12:06 Pulse 68 88 86 93 B/P (MAP) 121/79 (93) 132/85 (101) 138/82 (100) 148/79 (102) Pulse Ox 97 99 99 97 O2 Delivery Room Air Room Air Room Air Room Air 10/03/23 10/03/23 10/03/23 10/03/23 12:08 12:10 12:14 12:17 Pulse 91 95 97 78 B/P (MAP) 123/71 (88) 128/79 (95) 129/68 (88) 126/70 (88) Pulse Ox 97 96 97 O2 Delivery Room Air Room Air Room Air Room Air 10/03/23 10/03/23 10/03/23 10/03/23 12:20 12:30 12:46 13:01 Pulse 77 82 89 91 B/P (MAP) 123/79 (94) 130/72 (91) 137/83 (101) 136/83 (100) Pulse Ox 97 98 99 100 O2 Delivery Room Air Room Air Room Air Room Air 10/03/23 10/03/23 10/03/23 10/03/23 13:11 13:16 13:31 13:47 Pulse 74 75 76 83 B/P (MAP) 122/88 (99) 113/56 (75) 113/64 (80) 124/73 (90) Pulse Ox 99 99 98 99 O2 Delivery Room Air Room Air Room Air Room Air 10/03/23 10/03/23 10/03/23 10/03/23 14:18 14:30 14:46 15:02 Pulse 87 87 88 79 B/P (MAP) 126/80 (95) 127/60 (82) 111/55 (73) 111/64 (80) Pulse Ox 100 98 98 99 O2 Delivery Room Air Room Air Room Air Room Air 10/03/23 10/03/23 10/03/23 10/03/23 15:16 15:32 15:46 16:01 Temp 37.4 Pulse 80 86 86 87 Resp 18 B/P (MAP) 113/67 (82) 140/81 (100) 150/88 (108) 128/81 (97) Pulse Ox 100 100 100 O2 Delivery Room Air Room Air Room Air Room Air 10/03/23 10/03/23 10/03/23 10/03/23 16:02 16:15 19:01 19:16 Pulse 87 93 87 82 B/P (MAP) 128/76 (93) 125/74 (91) 138/81 (100) 144/81 (102) Pulse Ox 100 O2 Delivery Room Air Room Air Room Air Room Air 10/03/23 10/03/23 10/03/23 10/03/23 19:31 19:46 20:00 20:16 Pulse 80 90 95 82 Resp 18 B/P (MAP) 138/83 (101) 133/85 (101) 127/83 (98) 114/67 (83) Pulse Ox 97 O2 Delivery Room Air Room Air Room Air Room Air 10/03/23 10/03/23 10/03/23 10/03/23 20:30 20:45 21:00 21:15 Pulse 86 94 79 88 B/P (MAP) 119/73 (88) 119/69 (86) 104/61 (75) 112/59 (76) O2 Delivery Room Air Room Air Room Air Room Air Rupture of Membranes Spontaneous Ruture of Membrane: Yes Amniotic Membrane Rupture Time: 0545 Amniotic Membrane Fluid Desc.: Clear Vaginal Bleeding Description: Normal Show Induction/Anesthesia Epidural Cath Placement - Time: 1200 Progress/Notes Patient admitted after SROM at home arrived and was 2 cm. Pitocin augmentation started and the patient had an epidural placed at 1200 by request. She continued to progress slowly with adequate contraction pattern after IUPC was inserted to confirm adequate. She progressed to complete and + 1 station when I was called for delivery by RN. L&D Stage2 Stage Two Stage II Date: Oct 04, 2023 Monitors and Tracing Monitor Mode: Internal Heart Rate: 135 Monitor Accelerations: Uniform Monitor Decelerations: Variable Longterm Variability: Average (6-10) Short Term Variability: Present Position: Right Occiput Anterior Presentation: Vertex Signs of Distress by FHT Signs of Distress With maternal pushing she was becoming lightheaded and losing effectiveness. Due to ineffective maternal pushing, and +2-3 station being reached, decision was made to proceed with low vaccum extraction. First vacuum placed did not seal and popped off immediately due to fluid in the device. Second one was placed correctly over the flexion point and suction applied by handpiece to 450 mmHg with next maternal push, head was delivery with gentle extension over RML. At which point suction was released, double nuchal was reduced and FSE removed. Anterior then posterior shoulders delivered without difficulty. Cord Descript/Complications Cord Vessel Description: 3 Vessels Complications nuchal cord x 2 reduced after delivery of head. Delivery Type Delivery Method: Low Vacuum Extraction Anterior Shoulder: Left Episiotomy/Perineal Laceration Laceraction(s)/Extensions: Yes Episiotomy Description: Right Mediolateral Degree (describe repair) RML repaired using 3-0 rapide and 2-0 vicryl suture in usual fashion. Condition of Delivery 1 minute Comment: 8 5 minute Comment: 9 Notes Live male infant, weight pending. Condition of Infant Condition of Infant: Living Exam: No Observed Abnormalities Resuscitation Resuscitation: N/A - Spontaneous Resp L&D Stage3 Stage Three Stage III Date: Oct 04, 2023 Pictocin Pitocin Administration mu/min: 12 Pitocin ml/hr: 12 Pitocin Administration Comment: 400 Placenta Delivery Placenta Delivery: Spontaneous Delivery Summary Summary Estimated blood loss (mL): 400 Attending at delivery: Jose Hernandez DO Condition of Delivery Examined: Cervix Examined, Uterus Explored Post Hemorrhage: No Condition of Mother stable Condition of Infant (s) stable JOSE HERNANDEZ DO Oct 04, 2023 01:08
--- NOTE | 2023-10-04 01:13 | Discharge Inst-Women's Service ---
Discharge Inst-Women's Serv Depart Medication/Instructions New, Converted or Re-Newed RX: Transmitted to Pharmacy Final Diagnosis PPD 1 VAVD Problems Reviewed?: Yes Consults/Follow Up Additional Follow Up: Yes Orders/Referrals Dr. Hernandez in 6 weeks Activity Activity: Activity as Tolerated Driving Instructions: No Driving for 1 Week NO SMOKING: NO SMOKING Nothing Inside Vagina: No Douching, No Linda, No Tampons Diet Discharge Diet: No Restrictions Symptoms to Report to : Bleeding Excessive, Pain Increased, Fever Over 101 Degrees F, Vaginal Bleeding Increase, Questions/Concerns For Any Problems or Questions: Contact Your Physician MILE HERNANDEZ DO Oct 04, 2023 01:13
[2023-10-04] MEDS ORDERED: IBUP-844 PO (01:14)
[2023-10-04] MEDS ORDERED: DOCU100C37 PO (01:14)
[2023-10-04] MEDS ORDERED: DIBU30OI TOP (01:14)
[2023-10-04] MEDS ORDERED: ACHD5005 PO (01:14)
[2023-10-04] MEDS ORDERED: FERR325T24 PO (01:14)
[2023-10-04] MEDS ORDERED: BENZ78AE5 TP (01:14)
[2023-10-04] MEDS ORDERED: HYDROcodone/ACETAMINOPHEN 5 MG/325 MG TABLET PO PRN (01:15)
[2023-10-04] MEDS ORDERED: OXYTOCIN DRIP PRE-MIX 500 ML IV SCH (01:15)
[2023-10-04] MEDS ORDERED: NALOXONE 0.4 MG/ML 1 ML VIAL IV PRN (01:15)
[2023-10-04] MEDS ORDERED: DIBUCAINE 1% OINTMENT 28 GM TUBE TOP PRN (01:15)
[2023-10-04] MEDS ORDERED: MEASLES, MUMPS, RUBELLA VACCINE (MMR) SQ ONE (01:15)
[2023-10-04] MEDS ORDERED: Tetanus/Diphtheria/Pertussis (Acell) ADULT Vaccine 0.5 ML IM ONE (01:15)
[2023-10-04] MEDS: BENZOCAINE/MENTHOL (DERMOPLAST) 56 ML CAN TP PRN ×2 (03:00→13:00)
[2023-10-04] MEDS: WITCH HAZEL(TUCKS) 40 EA JAR TOP PRN ×2 (03:00→13:00)
[2023-10-04] MEDS: IBUPROFEN 600 MG TABLET PO SCH ×2 (03:00→08:09)
[2023-10-04] MEDS ORDERED: CATHETER FLUSH 10 ML SYR IV SCH (06:00)
[2023-10-04] MEDS ORDERED: PRENATAL VITAMIN TABLET PO SCH (07:00)
--- NOTE | 2023-10-04 08:11 | Postpartum Progress Note ---
Note Note Day # 0 Subjective: Patient is without complaints. Ambulating, voiding. Tolerating a regular diet without nausea or vomiting. Normal lochia. Pain is well controlled with oral pain medications. Objective: Physical Exam: General - Alert and oriented, no apparent distress Abdomen - Soft, appropriately tender to palpation, non-distended, fundus firm at umbilicus Extremities - no edema, negative Sravanthi's bilaterally Assessment: PPD 0 VAVD Plan: Routine care. Encourage breast feeding. Encourage ambulation. Ferrous sulfate supplementation. Plan for discharge tomorrow Vitals - Labs Vital Signs - I&O Vital Signs Date Time Temp Pulse Resp B/P (MAP) Pulse Ox O2 Delivery O2 Flow Rate FiO2 10/04/23 08:00 36.6 76 18 116/59 (78) 97 Room Air 10/04/23 03:33 92 114/74 (87) Room Air 10/04/23 03:16 98 105/55 (72) Room Air 10/04/23 03:03 36.7 92 18 136/73 (94) 97 Room Air 10/04/23 02:33 93 119/69 (86) Room Air 10/04/23 02:00 90 121/71 (88) Room Air 10/04/23 01:45 100 136/80 (98) Room Air 10/04/23 01:30 96 125/65 (85) Room Air 10/04/23 01:15 100 137/79 (98) Room Air 10/04/23 01:01 110 147/78 (101) Room Air 10/04/23 00:45 96 124/72 (89) Room Air 10/04/23 00:15 113 111/55 (73) Room Air 10/04/23 00:00 110 119/60 (79) Room Air 10/03/23 23:45 106 124/60 (81) Room Air 10/03/23 23:30 93 18 140/68 (92) Room Air 10/03/23 23:02 118 125/86 (99) Room Air 10/03/23 22:46 87 133/81 (98) Room Air 10/03/23 22:30 78 122/68 (86) Room Air 10/03/23 22:15 84 118/66 (83) Room Air 10/03/23 22:01 81 131/77 (95) Room Air 10/03/23 21:46 86 135/87 (103) Room Air 10/03/23 21:30 90 114/62 (79) Room Air 10/03/23 21:15 88 112/59 (76) Room Air 10/03/23 21:00 79 104/61 (75) Room Air 10/03/23 20:45 94 119/69 (86) Room Air 10/03/23 20:30 86 119/73 (88) Room Air 10/03/23 20:16 82 114/67 (83) Room Air 10/03/23 20:00 36.4 95 127/83 (98) Room Air 10/03/23 19:46 90 18 133/85 (101) 97 Room Air 10/03/23 19:31 80 138/83 (101) Room Air 10/03/23 19:16 82 144/81 (102) Room Air 10/03/23 19:01 87 138/81 (100) Room Air 10/03/23 16:15 93 125/74 (91) 100 Room Air 10/03/23 16:02 87 128/76 (93) Room Air 10/03/23 16:01 87 128/81 (97) Room Air 10/03/23 15:46 86 150/88 (108) 100 Room Air 10/03/23 15:32 86 140/81 (100) 100 Room Air 10/03/23 15:16 37.4 80 18 113/67 (82) 100 Room Air 10/03/23 15:02 79 111/64 (80) 99 Room Air 10/03/23 14:46 88 111/55 (73) 98 Room Air 10/03/23 14:30 87 127/60 (82) 98 Room Air 10/03/23 14:18 87 126/80 (95) 100 Room Air 10/03/23 13:47 83 124/73 (90) 99 Room Air 10/03/23 13:31 76 113/64 (80) 98 Room Air 10/03/23 13:16 75 113/56 (75) 99 Room Air 10/03/23 13:11 74 122/88 (99) 99 Room Air 10/03/23 13:01 91 136/83 (100) 100 Room Air 10/03/23 12:46 89 137/83 (101) 99 Room Air 10/03/23 12:30 82 130/72 (91) 98 Room Air 10/03/23 12:20 77 123/79 (94) 97 Room Air 10/03/23 12:17 78 126/70 (88) 97 Room Air 10/03/23 12:14 97 129/68 (88) Room Air 10/03/23 12:10 95 128/79 (95) 96 Room Air 10/03/23 12:08 91 123/71 (88) 97 Room Air 10/03/23 12:06 93 148/79 (102) 97 Room Air 10/03/23 12:00 86 138/82 (100) 99 Room Air 10/03/23 11:54 88 132/85 (101) 99 Room Air 10/03/23 11:48 68 121/79 (93) 97 Room Air 10/03/23 11:27 88 139/84 (102) Room Air 10/03/23 11:13 37.2 86 18 133/77 (95) Room Air 10/03/23 10:58 86 152/77 (102) Room Air 10/03/23 10:43 123/80 (94) Room Air 10/03/23 10:28 88 115/79 (91) Room Air 10/03/23 10:12 118/81 (93) Room Air 10/03/23 09:57 85 113/76 (88) Room Air 10/03/23 09:44 81 106/66 (79) Room Air 10/03/23 09:27 87 116/71 (86) Room Air 10/03/23 09:14 87 120/63 (82) Room Air 10/03/23 08:57 87 124/76 (92) Room Air 10/03/23 08:43 91 124/82 (96) Room Air 10/03/23 08:27 85 123/78 (93) Room Air 10/03/23 08:20 91 122/81 (95) Room Air 10/03/23 08:15 36.6 87 18 97 Room Air I & O 10/04/23 07:00 Intake Total 2000 ml Balance 2000 ml Labs Laboratory Tests 10/03/23 08:20: White Blood Count 13.7H, Red Blood Count 4.28, Hemoglobin 13.3, Hematocrit 39, Mean Corpuscular Volume 91, Mean Corpuscular Hemoglobin 31, Mean Corpuscular Hemoglobin Concent 34, Red Cell Distribution Width 12.8, Platelet Count 253, Mean Platelet Volume 10.5, Immature Granulocyte % (Auto) 1, Neutrophils (%) (Auto) 78H, Lymphocytes (%) (Auto) 15, Monocytes (%) (Auto) 6, Eosinophils (%) (Auto) 1, Basophils (%) (Auto) 0, Neutrophils # (Auto) 10.7H, Lymphocytes # (Auto) 2.1, Monocytes # (Auto) 0.8, Eosinophils # (Auto) 0.1, Basophils # (Auto) 0.0, Immature Granulocyte # (Auto) 0.1, Syphilis Total Antibody Negative MILE HERNANDEZ DO Oct 04, 2023 08:11
[2023-10-04] MEDS ORDERED: ACETAMINOPHEN 500 MG TABLET PO PRN (08:30)
--- NOTE | 2023-10-04 08:32 | Diagnostic Imaging Report ---
Indication: Postop possible foreign body. Findings: There is a normal bowel gas pattern. No appreciable retained opaque foreign body apparent at this 2 view series. Impression: No suspicious foreign body visible. Dictated by: Dictated on workstation # [id number]
[2023-10-04] MEDS ORDERED: DOCUSATE SODIUM 100 MG CAPSULE PO SCH (09:00)
[2023-10-04] MEDS ORDERED: FERROUS SULFATE 325 MG (IRON) TABLET PO SCH (09:00)
[2023-10-04 12:36] LABS: BASOPHILS # (AUTO) 0.1 10^3/uL (0.0-0.1); BASOPHILS % (AUTO) 0 % (0-10); EOSINOPHILS # (AUTO) 0.1 10^3/uL (0.0-0.3); EOSINOPHILS % (AUTO) 0 % (0-10); HEMATOCRIT 33 % (35-52); HEMOGLOBIN 11.3 g/dL (11.5-16.0); LYMPHOCYTES # (AUTO) 3.5 10^3/uL (1.0-4.0); LYMPHOCYTES % (AUTO) 18 % (12-44); MEAN CORPUSCULAR HEMOGLOBIN 31 pg (25-34); MEAN CORPUSCULAR HGB CONC 34 g/dL (32-36); MEAN CORPUSCULAR VOLUME 91 fL (80-99); MEAN PLATELET VOLUME 10.4 fL (9.0-12.2); MONOCYTES # (AUTO) 1.3 10^3/uL (0.0-1.0); MONOCYTES % (AUTO) 7 % (0-12); NEUTROPHILS # (AUTO) 14.7 10^3/uL (1.8-7.8); NEUTROPHILS % (AUTO) 74 % (42-75); PLATELET COUNT 266 10^3/uL (130-400); WHITE BLOOD COUNT 19.8 10^3/uL (4.3-11.0)
--- NOTE | 2023-10-04 14:20 | Anesthesia-Regional Post-Op ---
Regional Patient Condition Mental Status: Alert, Oriented x3 Circulation: Same as Pre-Op Headache: Absent Sensation: Full Recovery Motor Block: Absent Post Op Complications Complications None Follow Up Care/Instructions Patient Instructions None needed. Anesthesia/Patient Condition Patient is doing well, no complaints, stable vital signs, no apparent adverse anesthesia problems. No complications reported per nursing. RICKY JENNINGS DO Oct 04, 2023 14:20
== END 2023-10-04 13:50 | disposition home or self-care (01) | DRG 807 ==
LOC: LDRP 07:17 → WSo 07:17 → LDRP 08:00
PROVIDERS: ADMIT Obstetrics & Gynecology; ATTEND Obstetrics & Gynecology
PROC: 10D07Z6 Extraction of Products of Conception, Vacuum, Via Natural or Artificial Opening (ICD-10-PCS; principal; 2023-10-04)
PROC: 10H07YZ Insertion of Other Device into Products of Conception, Via Natural or Artificial Opening (ICD-10-PCS; 2023-10-04)
PROC: 0U7C7ZZ Dilation of Cervix, Via Natural or Artificial Opening (ICD-10-PCS; 2023-10-04)
DX: O69.81X0 Labor and delivery complicated by cord around neck, without compression, not applicable or unspecified (principal); Z37.0 Single live birth; Z3A.38 38 weeks gestation of pregnancy
CPT/HCPCS: 36415; 74018; 81000; 85025; 86780; 86850; 86900; 86901